=== PATIENT | female | born 1995 | race Two or more races ===

== ENCOUNTER 2021-07-13 06:28 | Outpatient (CLI) | payer OTHER | END 2021-07-13 06:29 | disposition home or self-care (01) | LOC: LAB 06:28 | PROVIDERS: ATTEND Dermatology | DX: L70.0 Acne vulgaris (principal) ==

== ENCOUNTER 2021-08-02 08:00 | Outpatient (CLI) | payer OTHER | END 2021-08-02 08:30 | disposition home or self-care (01) | LOC: PPH VACUNA 08:00 | PROVIDERS: ATTEND Emergency Medicine Pediatric Emergency Medicine | DX: Z23 Encounter for immunization (principal) ==

== ENCOUNTER 2021-08-12 10:03 | Outpatient (CLI) | payer OTHER | END 2021-08-12 10:05 | disposition home or self-care (01) | LOC: PPH VACUNA 10:03 | PROVIDERS: ATTEND Emergency Medicine Pediatric Emergency Medicine | DX: Z23 Encounter for immunization (principal) ==

== ENCOUNTER 2022-04-14 13:53 | Outpatient (CLI) | payer OTHER | END 2022-04-14 13:58 | disposition home or self-care (01) | LOC: LAB 13:53 | PROVIDERS: ATTEND Preventive Medicine Occupational Medicine | DX: U07.1 COVID-19 (principal) ==

== ENCOUNTER 2022-07-20 08:00 | Outpatient (CLI) | payer OTHER | END 2022-07-20 08:05 | disposition home or self-care (01) | LOC: PPH VACUNA 08:00 | PROVIDERS: ATTEND Emergency Medicine Pediatric Emergency Medicine | DX: Z23 Encounter for immunization (principal) ==

== ENCOUNTER 2022-10-04 11:57 | Outpatient (CLI) | payer OTHER ==
[2022-10-04] MEDS ORDERED: AMOX-CLAV 875-1 EACH PO (17:32)
== END 2022-10-04 11:58 | disposition home or self-care (01) ==
LOC: LAB 11:57
PROVIDERS: ATTEND Preventive Medicine Occupational Medicine
DX: U07.1 COVID-19 (principal)

== ENCOUNTER 2022-10-04 13:26 | Emergency (ER) | payer OTHER ==
[~2022-10-04] VITALS: Ht 162.6 cm; Wt 83.9 kg
[2022-10-04] MEDS ORDERED: AMOX-CLAV 875-1 EACH PO (17:32)
== END 2022-10-04 18:07 | disposition home or self-care (01) ==
LOC: ER 13:26
DX: J02.9 Acute pharyngitis, unspecified (principal); Z88.8 Allergy status to other drugs, medicaments and biological substances

== ENCOUNTER 2023-03-01 11:31 | Outpatient (CLI) | payer OTHER ==
[~2023-03-01 11:31] MED LIST: AMOX-CLAV 875-1 EACH PO
== END 2023-03-01 11:33 | disposition home or self-care (01) ==
LOC: TOM 11:31
PROVIDERS: ATTEND Internal Medicine
DX: G43.009 Migraine without aura, not intractable, without status migrainosus (principal)

== ENCOUNTER 2023-07-14 07:40 | Outpatient (CLI) | payer OTHER | END 2023-07-14 07:50 | disposition home or self-care (01) | LOC: PPH VACUNA 07:40 | PROVIDERS: ATTEND Emergency Medicine Pediatric Emergency Medicine | DX: Z23 Encounter for immunization (principal) | CPT/HCPCS: 90686; G0008 ==